=== PATIENT | female | born 1990 | race Caucasian/White ===

== ENCOUNTER 2016-11-28 01:57 | Inpatient (IN) | payer OTHER ==
[~2016-11-28] VITALS: Ht 160 cm; Wt 79.4 kg
[2016-11-28 05:30] VITALS: BP 102/64
--- NOTE | 2016-11-28 06:05 | ACUTE CARE PROGRESS NOTE (QUA) ---
Progress Notes Subjective Date 11/28/16 Time 0603 Assessment/Plan This inpt stay is expected to cross 2 MNs from start of care Yes (OB delivery) Comments: This 26-year-old 2, para 1, AB 0 white female is admitted at 39-4/7 weeks with irregular contractions. Her cervix is 90 percent, 2-3 cm, with the presenting vertex at -2 station. Her vital signs are stable. The plan is for augmentation with intravenous Pitocin and vaginal delivery. at 0604
[2016-11-28 07:16] LABS: LYMPH # 1.8 K/mm3 (0.7-4.5)
[2016-11-28 07:19] LABS: ABO BLOOD TYPE O; RH BLOOD TYPE POSITIVE
--- NOTE | 2016-11-28 07:21 | ACUTE CARE PROGRESS NOTE (QUA) ---
Progress Notes Subjective Date 11/28/16 Time 0720 Note Cervix is 3 cm, 90 percent, presenting vertex at -2 station. Amniotomy reveals clear fluid. The patient is asking for an epidural. Assessment/Plan This inpt stay is expected to cross 2 MNs from start of care Yes (OB delivery) at 0720
[2016-11-28 07:27] VITALS: BP 106/71
--- NOTE | 2016-11-28 08:04 | ACUTE CARE PROGRESS NOTE (QUA) ---
Progress Notes Subjective Date 11/28/16 Time 0803 Note Epidural is now in situ. Cervix is completely effaced, 5 cm, with a presenting vertex at -2 station. An internal monitor has been placed. The patient is doing well. Assessment/Plan This inpt stay is expected to cross 2 MNs from start of care Yes (OB delivery) at 0804
--- NOTE | 2016-11-28 10:44 | ACUTE CARE PROGRESS NOTE (QUA) ---
Progress Notes Subjective Date 11/28/16 Time 1043 Note Cervix is now completely effaced, 9 cm, 0 station. Assessment/Plan This inpt stay is expected to cross 2 MNs from start of care Yes (OB delivery) at 1043
--- NOTE | 2016-11-28 11:52 | ACUTE CARE PROGRESS NOTE (QUA) ---
Progress Notes Subjective Date 11/28/16 Time 1152 Note Cervix is now completely effaced, completely dilated, with the presenting vertex at 0 station. Assessment/Plan This inpt stay is expected to cross 2 MNs from start of care Yes (OB delivery) at 1152
--- NOTE | 2016-11-28 12:30 | Delivery Note ---
Delivery note Delivery date: 11/28/16 Delivery time: 1207 Anesthesia: Epidural Was labor medically induced? No Gestational age in weeks: 39 weeks Days: 4 days Delivery prior to 39 weeks? No Sex: male score at one minute: 8 at 5 minutes: 9 Type of suction: bulb AF: Clear LAC or MLE: LAC (first-degree perineal) Delivery procedure: Normal Delivery Delivery of placenta: manual Clinical note This 26-year-old 2, now para 2, AB 0 white female was admitted at 39-4/7 weeks with irregular contractions at 3 cm of dilatation. She was augmented with intravenous Pitocin, and labored under labor epidural, which worked well. She went steadily to completion and delivered spontaneously, without an episiotomy. The baby's naso-and oropharynx were bulb suctioned, and the baby cried spontaneously on the perineum, as was delivered. There was no nuchal cord, nor was there any meconium. The cord was clamped and cut, 3 vessels were noted to be within the cord, and cord blood was obtained. Cord pH was 7.40. The baby was handed into the arms of the attending RN, was signed Apgars of 8 at 1 minute and 9 at 5 minutes to this 7 lbs. 13 oz., 20 inch male , born at 1207. The baby was recovered in excellent condition. The cervix contracted immediately after delivery, necessitating manual removal of the placenta, intact. The uterus was inspected, and was felt to be clean, and was involuting well, with IV Pitocin running. There was no episiotomy, but there was a first-degree perineal laceration, which was closed with a running locked suture of 2-0 Vicryl. The rectovaginal septum was intact at the close of the procedure. The sponge and needle counts correct. This will blood loss was 350 mL. The patient tolerated the procedure well, and was recovered in excellent condition. Her blood type is O positive. Her rubella titer is immune. She plans to bottlefeed. at 1230
--- NOTE | 2016-11-29 06:46 | ACUTE CARE PROGRESS NOTE (QUA) ---
Progress Notes Subjective Date 11/29/16 Time 0645 Note This is day number 1. The patient is afebrile. Vital signs stable. Uterine fundus involuting well. Lochia normal. Perineum healing well. Hemoglobin 10.0 g, but clinically stable. Bottlefeeding. Assessment/Plan This inpt stay is expected to cross 2 MNs from start of care Yes (OB delivery) at 0645
[2016-11-29 06:55] LABS: HEMOGLOBIN 10.4 g/dL (12.2-16.2)
[2016-11-29 08:53] VITALS: BP 106/59
[2016-11-30 00:34] VITALS: BP 110/69
--- NOTE | 2016-11-30 09:39 | ACUTE CARE PROGRESS NOTE (QUA) ---
Progress Notes Subjective Date 11/30/16 Time 0938 Note This is day number 2. The patient is afebrile. Vital signs stable. Abdomen soft. Lochia normal. Uterine fundus has involuted well. Perineum healing well. Hemoglobin 10.4 g, but clinically stable. We discharged today. Assessment/Plan This inpt stay is expected to cross 2 MNs from start of care Yes (OB delivery) at 0939
--- NOTE | 2016-11-30 09:43 | DISCHARGE SUMMARY STANDARD ---
Discharge Summary Date of admission: 11/28/16 Date of discharge: 11/30/16 Patient condition: Stable Discharge diagnosis (es): 1. Term intrauterine , delivered. 2. Anemia. Hospital course: This 26-year-old 2, now para 2, AB 0 white female was admitted at 39-4/7 weeks with irregular contractions at 3 cm of dilatation. She was augmented with intravenous Pitocin, and labored under labor epidural, which worked well. She went steadily to completion and delivered spontaneously, without an episiotomy, at 1207 on 11/28/16. The baby was an 8/9, 7 lbs. 13 oz., 20 inch male infant, who is bottlefeeding, has been circumcised, and has done well. There was a first-degree perineal laceration, which was closed in the usual fashion. , the patient has done well. She is eating and ambulating, and has had a bowel movement. Her abdomen is soft. Her uterine fundus has involuted well. Her lochia is normal. Her perineum is healing well. Her hemoglobin is 10.4 g, but she is clinically stable. Her blood type is O positive. Her rubella titer is immune. She is bottlefeeding. She is not a smoker. She is discharged home on the second day on iron and vitamins, and on Tylenol and Motrin, as needed for pain. She is given appropriate instructions as to diet, exercise, and perineal care, and she is to return the office in 3 weeks for follow-up. at 4357
[2016-11-30 10:28] VITALS: BP 112/71
== END 2016-11-30 11:10 | disposition home or self-care (01) | DRG 767 ==
LOC: OB 01:57
PROVIDERS: Obstetrics & Gynecology
PROC: 10D17ZZ Extraction of Products of Conception, Retained, Via Natural or Artificial Opening (ICD-10-PCS; principal; 2016-11-28)
PROC: 0HQ9XZZ Repair Perineum Skin, External Approach (ICD-10-PCS; principal; 2016-11-28)
PROC: 10E0XZZ Delivery of Products of Conception, External Approach (ICD-10-PCS; principal; 2016-11-28)
DX: O70.0 First degree perineal laceration during delivery (principal); Z37.0 Single live birth; O73.0 Retained placenta without hemorrhage; Z3A.39 39 weeks gestation of pregnancy
CPT/HCPCS: C1758